=== PATIENT | male | born 2000 | race Two or more races ===

== ENCOUNTER 2024-05-27 20:18 | Emergency (ER) | payer SELFPAY ==
[~2024-05-27] VITALS: Ht 195.6 cm; Wt 68.1 kg
[2024-05-27 21:19] VITALS: BP 123/81; PULSE 93; RESP 20; TEMP 98; O2SAT 98
[2024-05-27] MEDS ORDERED: FLUT1SPR5 (21:21)
--- NOTE | 2024-05-27 21:21 | ED.PDOC ---
History of Present Illness HPI Comments C/C of loss of appetite, troubles with life, rent, and being a new father. Pt states he was treated at [facility] a few weeks ago for anxiety/panic attack. Pt speaking rapidly, appears anxious. Pt admits to daily marijuana use, "that sometimes contains nicotine."COMPLAINING OF SORE THROAT AND STUFFY NOSE STATES THIS IS MAIN COMPLAINT. Pt A&O x4, breathing even and unlabored on RA. VSS. NKDA. Denies PMH. DENIES HI, SI, GENAO, HI Chief Complaint: Anxiety Time Seen by MD: 20:35 Primary Care Provider: NONE Reviewed Notes: Nurses Notes, Medications, Allergies Allergies: Coded Allergies: NO KNOWN ALLERGIES (Unverified , 10/06/23) Home Meds Active Scripts Fluticasone Propionate (Nasal) (Flonase Allergy Relief) 50 Mcg/Act Spr, 50 MCG NA BID for 14 Days, #1 SPRAY Prov:OMAR BRAXTON [employer] 05/27/24 Mode of Arrival: Ambulatory Past Medical History PAST MEDICAL HISTORY: Denies Surgical History: Denies all surgeries Family History Family History: Reviewed,noncontributory to illness Social History Smoker: Non-Smoker Alcohol: Denies ETOH Use Drugs: Marijuana Constitutional: denies: chills, diaphoresis, fatigue, fever, malaise, sweats, weakness, others EENTM: reports: nasal discharge, throat pain; denies: blurred vision, double vision, ear bleeding, ear discharge, ear drainage, ear pain, ear ringing, eye pain, eye redness, hearing loss, mouth pain, mouth swelling, nose bleeding, nose congestion, nose pain, photophobia, tearing, throat swelling, voice changes, others Respiratory: denies: cough, hemoptysis, orthopnea, SOB at rest, shortness of breath, SOB with excertion, stridor, wheezing, others Cardiovascular: denies: chest pain, dizzy spells, diaphoresis, Dyspnea on exertion, edema, irregular heart beat, left arm pain, lightheadedness, palpitations, PND, syncope, others Gastrointestinal: denies: abdomen distended, abdominal pain, blood streaked bowels, constipated, diarrhea, dysphagia, difficulty swallowing, hematemesis, melena, nausea, poor appetite, poor fluid intake, rectal bleeding, rectal pain, vomiting, others Genitourinary: denies: burning, dysuria, flank pain, frequency, hematuria, incontinence, penile discharge, penile sore, pain, testicle pain, testicle swelling, urgency, others Neurological: denies: dizziness, fainting, headache, left sided numbness, left sided weakness, numbness, paresthesia, pre-existing deficit, right sided numbness, right sided weakness, seizure, speech problems, tingling, tremors, weakness, others Musculoskeletal: denies: back pain, gout, joint pain, joint swelling, muscle pain, muscle stiffness, neck pain, others Integumetry: denies: bruises, change in color, change in hair/nails, dryness, laceration, lesions, lumps, rash, wounds, others Allergic/Immunocompromised: denies: Difficulty Healing, Frequent Infections, Hives, Itching, others Hematologic/Lymphatic: denies: anemia, blood clots, easy bleeding, easy bruising, swollen glands, others Endocrine: denies: excessive hunger, excessive sweating, excessive thirst, excessive urination, flushing, intolerance to cold, intolerance to heat, unexplained weight gain, unexplained weight loss, others Psychiatric: reports: anxiety; denies: bipolar disorder, depression, hopeless, panic disorder, schizophrenia, sleepless, suicidal, others Physical Exam General Appearance: No Apparent Distress, Normal, Other (PATIENT ACTING APPROPRIATELY SPEECH IS CLEAR SPEECH IS NOT RAPID DURING MY EXAM DOES NOT APPEAR TO BE ANXIOUS) HEENT: Pharyngeal Erythema, TMs Normal Neck: Full Range of Motion, Non-Tender, Normal, Normal Inspection Respiratory: Chest Non-Tender, Lungs Clear, No Accessory Muscle Use, No Respiratory Distress, Normal Breath Sounds Cardiovascular: No Edema, No JVD, No Murmur, No Gallop, Normal Peripheral Pulses, Regular Rate/Rhythm Breast Exam: Deferred Gastrointestinal: No Organomegaly, Non Tender, No Pulsatile Mass, Normal Bowel Sounds, Soft Genitalia: Deferred Pelvic: Deferred Rectal: Deferred Extremities: No calf tenderness, Normal capillary refill, Normal inspection, Normal range of motion, Non-tender, No pedal edema Musculoskeletal : Apperance: Normal Neurologic: Alert, skiver sock linings II-XII nml as Tested, No Motor Deficits, Normal Affect, Normal Mood, No Sensory Deficits Cerebellar Function: Normal Reflexes: Normal Skin: Dry, Normal Color, Warm Lymphatic: No Adenopathy Was a procedure done? Was a procedure done?: No Differential Dx Considerations may include: PHARYNGITIS X-Ray, Labs, Meds, VS Vital Signs Date Time Temp Pulse Resp B/P (MAP) Pulse Ox O2 Delivery O2 Flow Rate FiO2 05/27/24 21:19 93 20 98 Room Air 05/27/24 21:19 98.0 93 20 123/81 (95) 98 98.0 05/27/24 20:36 98.0 93 20 123/81 (95) 98 98.0 X-Ray, Labs, Meds, VS Comment POSTNASAL DRIP NOTED COBBLESTONING AND ERYTHEMA. SCRIPT FLONASE. ADVISED PATIENT TO FOLLOW UP WITH HIS PCP IN 1-2 DAYS. TAKE MEDICATIONS PRESCRIBED. EFFECTS DISCUSSED. ER RETURN PRECAUTIONS GIVEN PATIENT INDICATES UNDERSTANDING AGREES WITH DISCHARGE PLAN OF CARE. Time of 1ST Reevaluation: 21:17 Reevaluation 1ST: Improved Patient Education/Counseling: Diagnosis, Treatment, Prognosis, Need For Follow Up Family Education/Counseling: No Family Present Departure 1 Departure Time of Disposition: 21:19 Impression: Primary Impression: Post-nasal drip Disposition: 01 HOME / SELF CARE / HOMELESS Condition: Stable e-Prescriptions Fluticasone Propionate (Nasal) (Flonase Allergy Relief) 50 Mcg/Act Spr 50 MCG NA BID for 14 Days, #1 SPRAY Prov: OMAR BRAXTON 05/27/24 Discharged With: Self Critical Care Note Critical Care Time?: No Stability Stability form required: OMAR Barber May 27, 2024 21:21
== END 2024-05-27 21:36 | disposition home or self-care (01) ==
LOC: ER 20:18
DX: R09.82 Postnasal drip (principal); F41.9 Anxiety disorder, unspecified